=== PATIENT | male | born 1965 | race Caucasian/White ===

== ENCOUNTER 2020-07-10 15:28 | Emergency (ER) | payer BC ==
[~2020-07-10] VITALS: Ht 185.4 cm; Wt 90.7 kg
[~2020-07-10 15:28] MED LIST: ASPIRIN325 PO; ZANTAC 150MG T150 MG PO
[2020-07-10] MEDS ORDERED: SUPER THERAVIT1 EACH PO (15:41)
[2020-07-10 16:03] LABS: ABSOLUTE LYMPHOCYTES 1.2 thou/uL (0.8-5.3); ABSOLUTE MONOCYTES 1.2 thou/uL (0.0-1.2); ABSOLUTE NEUTROPHILS 11.3 thou/uL (1.6-8.1); BASOPHILS 0.4 %; EOSINOPHILS 0.1 %; HEMATOCRIT 43.8 % (42.0-52.0); HEMOGLOBIN 14.6 gm/dL (14.0-18.0); MCH 29.3 pg (26.0-34.0); MCHC 33.4 g/dL (28.0-37.0); MCV 87.6 fL (80.0-100.0); MONOCYTES 8.5 %; MPV 8.1 fl. (7.2-11.1); NUCLEATED RBCS 0 /100WBC; PLATELET COUNT* 156 thou/uL (150-400); RBC 4.99 mil/uL (4.50-6.00); WBC 13.8 thou/uL (4.0-11.0)
[2020-07-10 16:08] LABS: CALCIUM 8.9 mg/dL (8.5-10.1); CREATININE 0.9 mg/dL (0.6-1.3); POTASSIUM 5.3 mmol/L (3.5-5.1)
[2020-07-10 18:05] VITALS: BP 135/82
== END 2020-07-10 18:05 | disposition short-term general hospital (02) ==
LOC: M.ERS 15:28
PROVIDERS: Emergency Medicine
DX: J02.9 Acute pharyngitis, unspecified (principal); J39.1 Other abscess of pharynx; Z20.822 Contact with and (suspected) exposure to COVID-19